=== PATIENT | female | born 2000 | race Hispanic/Latino ===

== ENCOUNTER 2021-12-08 06:26 | Emergency (ER) | payer OTHER ==
[~2021-12-08] VITALS: Ht 152.4 cm; Wt 66.7 kg
[2021-12-08 07:04] VITALS: BP 121/75
[2021-12-08] MEDS ORDERED: FLUC150T48 PO (09:17)
[2021-12-08] MEDS ORDERED: CLOT15CR23 TP (09:17)
[2021-12-08] MEDS ORDERED: CLOTRIMAZOLE 30 GM CREAM.GM. TP SCH (09:30)
[2021-12-08] MEDS ORDERED: FLUCONAZOLE 100 MG TAB PO ONE (09:30)
== END 2021-12-08 09:42 | disposition home or self-care (01) ==
LOC: EDH 06:26
DX: B35.9 Dermatophytosis, unspecified (principal)

== ENCOUNTER 2022-02-01 00:05 | Emergency (ER) | payer OTHER ==
[~2022-02-01] VITALS: Ht 152.4 cm; Wt 59.0 kg
[~2022-02-01 00:05] MED LIST: CLOT15CR23 TP; FLUC150T48 PO
[2022-02-01 00:53] LABS: BASOPHILS % (AUTO) 0.3 % (0.0-5.0); EOSINOPHILS % (AUTO) 1.4 % (0.0-8.0); HEMATOCRIT 39.8 % (36-48); LYMPHOCYTES % (AUTO) 35.8 % (21.0-51.0); MEAN CORPUSCULAR HEMOGLOBIN 28.4 pg (27.0-33.0); MEAN CORPUSCULAR HGB CONC 33.4 g/dL (32.0-36.0); MONOCYTES % (AUTO) 6.8 % (3.0-13.0); NEUTROPHILS % (AUTO) 55.5 % (40.0-77.0); PLATELET COUNT (AUTO) 334 K/uL (130-400); RED BLOOD CELL COUNT(AUTO) 4.68 MIL/uL (4.00-5.50); RED CELL DISTRIBUTION WIDTH 12.5 % (11.0-15.5); WHITE BLOOD COUNT (AUTO) 9.5 K/uL (4.8-10.8)
[2022-02-01 00:55] LABS: APPEARANCE,URINE CLEAR (CLEAR); BILIRUBIN,URINE NEGATIVE (NEGATIVE); COLOR,URINE YELLOW (YELLOW); GLUCOSE, URINE (UA) NEGATIVE (NEGATIVE); KETONES,URINE NEGATIVE (NEGATIVE); LEUKOCYTE ESTERASE ,URINE NEGATIVE (NEGATIVE); NITRATE,URINE NEGATIVE (NEGATIVE); OCCULT BLOOD,URINE MODERATE (NEGATIVE); PH,URINE 6.5 (5.0-8.0); PROTEIN,URINE NEGATIVE (NEGATIVE); UROBILINOGEN,URINE 0.2 mg/dL (0.2-1.0)
[2022-02-01 00:58] LABS: CREATININE 0.7 mg/dL (0.5-1.5); POTASSIUM 3.5 mmol/L (3.5-5.1)
[2022-02-01 01:00] LABS: HCG,QUALITATIVE URINE NEGATIVE (NEGATIVE)
[2022-02-01 01:02] LABS: ALBUMIN 4.1 g/dL (3.5-5.0); BACTERIA,URINE Rare /HPF (None Seen); SQUAMOUS EPITHELIAL CELL,UR Few /HPF (0-2); TOTAL PROTEIN, SERUM 8.2 g/dL (6.0-8.3); WBC,URINE 0-1 /HPF (0-1)
[2022-02-01] MEDS ORDERED: KETOROLAC 15MG/ML VIAL (15MG/ML) IV ONE (01:30)
[2022-02-01] MEDS ORDERED: FAMOTIDINE 20MG VIAL IV ONE (01:30)
[2022-02-01] MEDS ORDERED: HYOSCYAMINE SULFATE 0.125 MG TAB.SUBL SL SCH (01:30)
[2022-02-01] MEDS ORDERED: FAMO-136 PO (02:38)
[2022-02-01] MEDS ORDERED: HYOS0.124 SL (02:38)
[2022-02-01] MEDS ORDERED: ONDA4TAB10 PO (02:38)
[2022-02-01 03:00] VITALS: BP 105/67
== END 2022-02-01 03:17 | disposition home or self-care (01) ==
LOC: EDH 00:05
DX: K21.9 Gastro-esophageal reflux disease without esophagitis (principal); R11.2 Nausea with vomiting, unspecified; Z79.1 Long term (current) use of non-steroidal anti-inflammatories (NSAID)
CPT/HCPCS: 99284; 96374; 96375; 80053; 83690; 85025; 81001; 81025; 36415; J3490; J1885

== ENCOUNTER 2023-01-06 01:46 | Emergency (ER) | payer OTHER ==
[~2023-01-06] VITALS: Ht 152.4 cm; Wt 66.7 kg
[~2023-01-06 01:46] MED LIST changes: +FAMO-136 PO; +HYOS0.124 SL; +ONDA4TAB10 PO
[2023-01-06 01:47] VITALS: BP 120/84
[2023-01-06] MEDS ORDERED: MAG/ALUM/SIMETH 30 ML UDCUP ONE (02:15)
[2023-01-06 02:19] LABS: BASOPHILS # (AUTO) 0.03 K/uL (0.00-0.20); BASOPHILS % (AUTO) 0.3 % (0.0-5.0); HEMATOCRIT 34.7 % (36-48); IMMATURE GRANULOCYTE ABSOLUTE 0.02 K/uL (0-1); LYMPHOCYTES % (AUTO) 19.8 % (21.0-51.0); MEAN CORPUSCULAR HEMOGLOBIN 28.4 pg (27.0-33.0); MEAN CORPUSCULAR HGB CONC 33.7 g/dL (32.0-36.0); MEAN CORPUSCULAR VOLUME 84.2 fL (80-100); MONOCYTES # (AUTO) 0.6 K/uL (0.1-1.0); MONOCYTES % (AUTO) 5.7 % (3.0-13.0); NEUTROPHILS # (AUTO) 7.3 K/uL (1.8-7.7); PLATELET COUNT (AUTO) 302 K/uL (130-400); RED BLOOD CELL COUNT(AUTO) 4.12 MIL/uL (4.00-5.50); RED CELL DISTRIBUTION WIDTH 12.5 % (11.0-15.5)
[2023-01-06 02:28] LABS: CREATININE 0.7 mg/dL (0.5-1.5); POTASSIUM 3.5 mmol/L (3.5-5.1)
[2023-01-06] MEDS ORDERED: LACTATED RINGERS 1000ML 1,000 ML IV ONE (02:30)
[2023-01-06] MEDS ORDERED: ONDANSETRON 4MG INJ IVP ONE (02:30)
[2023-01-06] MEDS ORDERED: LIDOCAINE HCL 2% VISCOUS 15 ML UDCUP PO ONE (02:30)
[2023-01-06] MEDS ORDERED: FAMOTIDINE 20MG TAB PO ONE (02:30)
[2023-01-06 02:32] LABS: ALBUMIN 3.7 g/dL (3.5-5.0); BILIRUBIN,TOTAL 0.2 mg/dL (0.2-1.0); TOTAL PROTEIN, SERUM 7.2 g/dL (6.0-8.3)
[2023-01-06 02:39] LABS: APPEARANCE,URINE CLEAR (CLEAR); BILIRUBIN,URINE NEGATIVE (NEGATIVE); COLOR,URINE YELLOW (YELLOW); GLUCOSE, URINE (UA) NEGATIVE (NEGATIVE); KETONES,URINE 5 mg/dL (NEGATIVE); LEUKOCYTE ESTERASE ,URINE 75 Leu/uL (NEGATIVE); NITRATE,URINE NEGATIVE (NEGATIVE); OCCULT BLOOD,URINE LARGE (NEGATIVE); PROTEIN,URINE 30 mg/dL (NEGATIVE); UROBILINOGEN,URINE 0.2 mg/dL (0.2-1.0)
[2023-01-06 02:43] LABS: HCG,QUALITATIVE URINE NEGATIVE (NEGATIVE)
[2023-01-06 02:44] LABS: ADD UA MICROSCOPIC YES
[2023-01-06 02:50] LABS: MUCUS,URINE FEW LPF (None Seen); SQUAMOUS EPITHELIAL CELL,UR RARE /HPF (0-2)
[2023-01-06] MEDS ORDERED: CEPHALEXIN 500 MG CAPSULE PO ONE (04:00)
[2023-01-06] MEDS ORDERED: METO-296 PO (05:14)
[2023-01-06] MEDS ORDERED: CEPH500B PO (05:14)
[2023-01-06 05:24] VITALS: PULSE 88; RESP 20; O2SAT 99
== END 2023-01-06 05:26 | disposition home or self-care (01) ==
LOC: EDH 01:46
DX: N39.0 Urinary tract infection, site not specified (principal); K29.70 Gastritis, unspecified, without bleeding; K80.50 Calculus of bile duct without cholangitis or cholecystitis without obstruction; K80.70 Calculus of gallbladder and bile duct without cholecystitis without obstruction
CPT/HCPCS: 36415; 76705; 80053; 81001; 81025; 83690; 85025; 87088